=== PATIENT | female | born 1995 | race Caucasian/White ===

== ENCOUNTER 2016-10-30 11:11 | Inpatient (IN) ==
[2016-10-30 11:48] LABS: URINE SOURCE VOIDED
[2016-10-30 11:59] LABS: BILIRUBIN URINE NEGATIVE (NEGATIVE); BLOOD URINE 4+ (NEGATIVE); CLARITY VERY CLOUDY (CLEAR); COLOR YELLOW; GLUCOSE URINE NEGATIVE (NEGATIVE); LEUKOCYTES URINE 1+ (NEGATIVE); NITRITE URINE NEGATIVE (NEGATIVE); PH URINE 6.5; PROTEIN URINE 1+(30 mg/dL) mg/dL (NEGATIVE); UROBILINOGEN URINE NORMAL
[2016-10-30] MEDS ORDERED: LR 2,000 ML ONE (11:59)
[2016-10-30] MEDS ORDERED: LR 500 ML IV ONE (12:10)
[2016-10-30] MEDS ORDERED: PEPCID PO PRN (12:10)
[2016-10-30] MEDS ORDERED: KEFZOL 1 GM/D5W 50 ML IV PRN (12:10)
[2016-10-30] MEDS ORDERED: TYLENOL PO PRN (12:10)
[2016-10-30] MEDS ORDERED: REGLAN PO ONE (12:10)
[2016-10-30] MEDS ORDERED: STADOL IV PRN (12:10)
[2016-10-30] MEDS ORDERED: ZOFRAN IV PRN (12:10)
[2016-10-30] MEDS ORDERED: PEPCID IV PRN (12:10)
[2016-10-30] MEDS ORDERED: PEPCID PO ONE (12:10)
[2016-10-30] MEDS ORDERED: SODIUM CHLORIDE 0.9% INJ SCH (12:15)
[2016-10-30] MEDS: LR 1,000 ML IV SCH ×2 (12:15→13:00)
[2016-10-30] MEDS ORDERED: PITOCIN 30 UNITS/LR 500 ML IV SCH (12:15)
[2016-10-30 12:40] LABS: MANUAL DIFF NEEDED? NO
[2016-10-30 12:41] LABS: BASO% 0.2 % (0.0-0.8); EOS# 0.08 X1000 (0.0-0.7); EOS% 0.9 % (0.0-10.0); HEMATOCRIT 32.4 % (37.0-47.0); HEMOGLOBIN 11.3 g/dL (12.0-16.0); IMM GRAN# 0.07 X1000 (0.0-0.04); IMM GRAN% 0.8 % (0.0-0.5); LYMPH# 1.44 X1000 (1.2-3.4); LYMPH% 15.9 % (20.5-51.1); MCH 31.6 PG (27-31); MCHC 34.9 g/dL (33-37); MCV 90.5 FL (81-99); MONO# 1.36 X1000 (0.11-0.59); MPV 9.8 FL (7.4-10.4); NEUT% 67.2 % (42.2-75.2); PLT 258 X1000 (130-400); RBC 3.58 XMIL (4.2-5.4)
[2016-10-30] MEDS ORDERED: MARCAINE 0.25% PF ONE (12:43)
[2016-10-30] MEDS ORDERED: FENTANYL-BUPIV-NS 2 MCG-0.1% 200 ML ONE (12:44)
[2016-10-30] MEDS ORDERED: MARCAINE 0.25% PF INJ ONE (13:45)
[2016-10-30] MEDS ORDERED: FENTANYL-BUPIV-NS 2 MCG-0.1% 200 ML EPIDURAL ONE (14:00)
[2016-10-30] MEDS ORDERED: MINERAL OIL ONE (15:45)
[2016-10-30] MEDS ORDERED: NORCO-5 PO PRN (16:52)
[2016-10-30] MEDS ORDERED: HYDROXYZINE PO PRN (16:52)
[2016-10-30] MEDS ORDERED: PERI MEDS (DERMOPLAST/NUPERCAINAL/TUCKS) MISC PRN (16:52)
[2016-10-30] MEDS ORDERED: MINERAL OIL MISC PRN (16:52)
[2016-10-30] MEDS ORDERED: XYLOCAINE-MPF 1% INJ PRN (16:52)
[2016-10-30] MEDS ORDERED: PITOCIN IM PRN (16:52)
[2016-10-30] MEDS ORDERED: BENADRYL IV PRN (16:52)
[2016-10-30] MEDS ORDERED: PITOCIN 30 UNITS/LR 500 ML IV ONE (16:52)
[2016-10-30] MEDS ORDERED: M-M-R II VACCINE SUBQ ONE (16:52)
[2016-10-30] MEDS ORDERED: AMBIEN PO PRN (16:52)
[2016-10-30] MEDS ORDERED: NORCO-10 PO PRN (16:52)
[2016-10-30] MEDS ORDERED: BENADRYL PO PRN (16:52)
[2016-10-30] MEDS ORDERED: BOOSTRIX VACCINE IM ONE (16:52)
[2016-10-30] MEDS ORDERED: HYDROXYZINE IM PRN (16:52)
[2016-10-30] MEDS ORDERED: CYTOTEC PO PRN (16:52)
[2016-10-30] MEDS ORDERED: PITOCIN 20 UNITS/LR 1,000 ML IV SCH (17:00)
[2016-10-30] MEDS: MOTRIN PO PRN (19:14)
[2016-10-30] MEDS: PERICOLACE PO SCH (20:57)
[2016-10-31 06:16] LABS: HEMATOCRIT 31.2 % (37.0-47.0); HEMOGLOBIN 10.4 g/dL (12.0-16.0); MCH 30.9 PG (27-31); MCHC 33.3 g/dL (33-37); MCV 92.6 FL (81-99); MPV 10.2 FL (7.4-10.4); RBC 3.37 XMIL (4.2-5.4)
[2016-10-31] MEDS: MOTRIN PO PRN (13:45)
[2016-10-31] MEDS: PERICOLACE PO SCH (21:10)
[2016-11-01 08:24] VITALS: BP 118/70
== END 2016-11-01 13:20 | disposition home or self-care (01) | DRG 775 ==
LOC: P.OPLD 11:11 → P.LD 11:12 → P.OPLD 11:51 → P.WC 21:35
PROVIDERS: ADMIT Obstetrics & Gynecology; ATTEND Obstetrics & Gynecology
PROC: 10E0XZZ Delivery of Products of Conception, External Approach (ICD-10-PCS; principal; 2016-10-30 16:33)
DX: O24.420 Gestational diabetes mellitus in childbirth, diet controlled (principal); Z37.0 Single live birth; Z3A.37 37 weeks gestation of pregnancy
CPT/HCPCS: 59025; 81003; 84112; 85025; 85027; 86592; J0595; J2405; J2590; J7120; S0020